=== PATIENT | male | born 1945 | race Hispanic/Latino ===

== ENCOUNTER 2016-06-14 16:14 | Emergency (ER) | payer MEDICARE, OTHER ==
[2016-06-14] MEDS ORDERED: Sulfameth/Trimethoprim DS 800-160mg TAB ONE (16:31)
[2016-06-14] MEDS ORDERED: Adacel (T-DAP) 0.5 ML VIAL ONE (16:31)
[2016-06-14] MEDS ORDERED: HYDROcodone/Acetaminophen 10/325 mg Tablet ONE (16:31)
== END 2016-06-14 16:45 | disposition home or self-care (01) ==
LOC: BURERS 16:14
DX: S61.231A Puncture wound without foreign body of left index finger without damage to nail, initial encounter (principal); L03.012 Cellulitis of left finger; X58.XXXA Exposure to other specified factors, initial encounter
CPT/HCPCS: 90471; 90715

== ENCOUNTER 2016-06-27 11:50 | Emergency (ER) | payer MEDICARE ==
[2016-06-27] MEDS ORDERED: Bupivacaine 0.25% 10 ML VIAL ONE (12:23)
[2016-06-27] MEDS ORDERED: Clindamycin/D5W 600 mg/50 ml Premix Bag ONE ×2 (12:37→12:38)
[2016-06-27 13:10] LABS: Anion Gap 15 mmol/L (10-20); BUN (Urea Nitrogen) 13 mg/dL (8.4-25.7); Calc. Creatinine Clearance 0 mL/min (70-130); Calcium 9.3 mg/dL (7.8-10.44); Carbon Dioxide 23 mmol/L (23-31); Chloride 101 mmol/L (98-107); Estimated GFR-MDRD 53; Glucose 325 mg/dL (80-115); Potassium 4.2 mmol/L (3.5-5.1); Sodium 135 mmol/L (136-145)
[2016-06-27 13:18] LABS: #Basophils 0.1 thou/uL (0.0-0.2); #Monocytes 0.4 thou/uL (0.11-0.59); #Neutrophils 4.1 thou/uL (1.40-6.50); %Basophils 1.2 % (0.0-1.0); %Eosinophils 0.6 % (0.0-10.0); %Lymphocytes 18.1 % (21.0-51.0); %Monocytes 7.2 % (0.0-10.0); %Neutrophils 72.9 % (42.0-75.0); Hemoglobin 17.1 g/dL (14.0-18.0); Mean Corpuscular HGB CONC 34.3 g/dL (32.0-36.0); Mean Corpuscular Volume 99.4 fl (80.0-94.0); Mean Platelet Volume 7.3 fL (7.4-10.4); PLT Morphology Comment Appears Decreased; Platelet Count 260 thou/uL (130-400); RBC Distribution Width 10.5 % (11.5-14.5); RBC Morphology Normal; Red Blood Cell (RBC) Count 5.03 mill/uL (4.70-6.10); White Blood Cell (WBC) Count 5.6 thou/uL (4.8-10.8)
--- NOTE | 2016-06-27 16:22 | RAD ---
LEFT INDEX FINGER THREE VIEWS 06/27/16 No fracture or opaque foreign body was seen. Soft tissue swelling is seen in the proximal portion of the finger. IMPRESSION: Soft tissue swelling. POS: HOME
== END 2016-06-27 14:35 | disposition home or self-care (01) ==
LOC: BURERS 11:50
DX: L02.512 Cutaneous abscess of left hand (principal); E11.9 Type 2 diabetes mellitus without complications; I10 Essential (primary) hypertension; Z79.899 Other long term (current) drug therapy
CPT/HCPCS: 10060; 80048; 85025; 87070; 87205; 96365; J3490; S0020

== ENCOUNTER 2018-08-20 11:11 | Emergency (ER) | payer MEDICARE ==
--- NOTE | 2018-08-20 11:58 | RAD ---
Left knee 4 views HISTORY: Left knee pain. FINDINGS: Joint spaces are preserved. Mild tricompartmental osteophytosis. No acute fracture, disloca tion, or aggressive osseous erosions. Moderate fluid distends the suprapatellar bursa on the lateral view. IMPRESSION: Left knee joint fluid. Cause is not evident. Effusion versus blood versus infection. Mild osteoarthritic changes. No acute osseous abnormalities are demonstrated.
== END 2018-08-20 12:12 | disposition home or self-care (01) ==
LOC: BURERS 11:11
DX: M25.562 Pain in left knee (principal); E11.9 Type 2 diabetes mellitus without complications; I10 Essential (primary) hypertension; Z79.84 Long term (current) use of oral hypoglycemic drugs

== ENCOUNTER 2019-03-07 13:51 | Outpatient (CLI) | payer OTHER ==
--- NOTE | 2019-03-07 17:38 | RAD ---
RIGHT KNEE FOUR VIEWS: 03/07/19 No fracture or joint effusion was seen. Severe degenerative changes were noted with nearly complete l oss of the joint space, both medially and laterally. The patellofemoral joint has severe arthritic c hange as well. IMPRESSION: Severe arthritic change POS: HOME
== END 2019-03-07 13:52 | disposition home or self-care (01) ==
LOC: BURRAD 13:51
PROVIDERS: ATTEND Family Medicine
DX: M25.561 Pain in right knee (principal); M17.11 Unilateral primary osteoarthritis, right knee

== ENCOUNTER 2019-12-26 11:10 | Outpatient (CLI) | payer MEDICARE, OTHER ==
--- NOTE | 2019-12-26 16:54 | RAD ---
LUMBAR SPINE THREE VIEWS: 12/26/19 No fracture or dislocation was seen. Large bridging osteophytes are seen between vertebrae. There may be some marginal disc space narrowing at L1-L2 and L4-L5. The SI joints are symmetrical. There were no areas of bony destruction. Dense calcification is seen in the aorta. IMPRESSION: Moderate degenerative changes throughout the spine. Slight disc space narrowing as noted above. I wovivienne ld also note prominent facet arthritis at the L4 through S1 levels. POS: HOME
== END 2019-12-26 11:11 | disposition home or self-care (01) ==
LOC: BURRAD 11:10
PROVIDERS: ATTEND Family Medicine
DX: M54.5 Low back pain (principal); M47.816 Spondylosis without myelopathy or radiculopathy, lumbar region; M47.817 Spondylosis without myelopathy or radiculopathy, lumbosacral region; M48.061 Spinal stenosis, lumbar region without neurogenic claudication
CPT/HCPCS: 72100

== ENCOUNTER 2020-07-23 11:25 | Outpatient (CLI) | payer MEDICARE | END 2020-07-23 11:26 | disposition home or self-care (01) | LOC: BURRAD 11:25 | PROVIDERS: ATTEND Family Medicine | DX: Z01.818 Encounter for other preprocedural examination (principal) | CPT/HCPCS: 71046; 93005; 93010 ==

== ENCOUNTER 2023-03-10 16:31 | Emergency (ER) | payer MEDICARE ==
[2023-03-10] MEDS ORDERED: HYDROcodone/Acetaminophen 5/325 mg Tablet ONE (16:55)
== END 2023-03-10 17:23 | disposition home or self-care (01) ==
LOC: BURERS 16:31
DX: M54.6 Pain in thoracic spine (principal); I10 Essential (primary) hypertension; E11.9 Type 2 diabetes mellitus without complications
CPT/HCPCS: 71046

== ENCOUNTER 2024-12-12 09:11 | Outpatient (CLI) | payer MEDICARE, OTHER | END 2024-12-12 09:12 | disposition home or self-care (01) | LOC: BURRAD 09:11 | PROVIDERS: ATTEND Nurse Practitioner Family | DX: M54.42 Lumbago with sciatica, left side (principal); M47.816 Spondylosis without myelopathy or radiculopathy, lumbar region | CPT/HCPCS: 72100 ==